=== PATIENT | female | born 1935 | race Caucasian/White ===

== ENCOUNTER → 2017-01-05 | Outpatient (CLI) | payer MEDICARE ==
--- NOTE | 2017-01-06 09:46 | RADIOLOGY REPORT PS360 ---
FOOT-LT-3 VIEWS COMPARISON: None HISTORY: Left foot pain TECHNIQUE: AP lateral and oblique views FINDINGS: There is mild generalized osteopenia. There is mild hallux valgus and soft tissue prominence over the first metatarsal head consistent with a bunion. The plantar arch is normal. There is a small spur of the calcaneus at insertion of plantar tendon. There is a small hypodense lesion in the navicular bone probably a bone cyst however the the interface between the lesion and the vertex of bone is somewhat poorly defined. Suggest consideration of a bone scan. Certainly focal osteopenia could give this appearance but an early lytic metastatic lesions a possibility. IMPRESSION: Generalized osteopenia, mild hallux valgus with bunion formation and somewhat curious hypodense lesion of the navicular bone, see discussion above
== END ==
LOC: RAD 14:52
DX: M79.672 Pain in left foot (principal)

== ENCOUNTER → 2017-01-11 | Outpatient (CLI) | payer MEDICARE | LOC: RAD 10:17 | DX: M79.672 Pain in left foot (principal) ==

== ENCOUNTER → 2017-01-12 | Outpatient (CLI) | payer MEDICARE ==
--- NOTE | 2017-01-12 12:31 | RADIOLOGY REPORT PS360 ---
NUC BONE SCAN (W/FLOW) 3PHASE HISTORY: Left fifth metatarsal pain with swelling. Abnormal radiograph with low density area in the navicular LT FOOT PAIN ORDERING PHYSICIAN: Feliberto Boswell MD PATIENT AGE: 81 years DOSE: 25.7 mCi technetium MDP COMPARISON: Radiograph of 01/05/2017 FINDINGS: Blood flow images show increased blood flow to the fourth metatarsal region. Blood pole images also show increased activity to the fourth metatarsal area.. There is increased activity to the plantar aspect of the the feet on both sides of questionable clinical significance on the blood flow images. The delayed images also show focal increased activity to the distal aspect of the fourth metatarsal region. No abnormal activity evident within the region of the navicular IMPRESSION: 1. Abnormal 3 phase bone scan with increased activity at the distal aspect of the left fourth metatarsal on all 3 phases images. The radiograph is unremarkable. This could be related to osteomyelitis which is below limits of resolution on the radiograph. An acute fracture could also cause increased activity on all 3 imaging bases. Please correlate with clinical findings. 2. No evidence of abnormal activity within the navicular. The radiographic and the malleus to the be due to an area of sparse bony trabeculation
== END ==
LOC: RAD 07:26
DX: M79.672 Pain in left foot (principal)
CPT/HCPCS: A9503